=== PATIENT | male | born 1990 | race African-American/Black ===

== ENCOUNTER 2017-05-01 21:05 | Emergency (ER) | payer OTHER ==
[~2017-05-01] VITALS: Ht 180.3 cm; Wt 97.5 kg
[2017-05-01] MEDS ORDERED: NORCO 5-325 TA1 EACH PO (21:26)
[2017-05-01] MEDS ORDERED: AMOXICILLIN 50500 MG PO (21:26)
[2017-05-01] MEDS ORDERED: IBUPROFEN 800800 MG PO (21:27)
[2017-05-01 22:06] VITALS: BP 119/70
== END 2017-05-01 22:07 | disposition home or self-care (01) ==
LOC: M.ERS 21:05
DX: K08.89 Other specified disorders of teeth and supporting structures (principal)

== ENCOUNTER 2019-11-11 20:34 | Emergency (ER) | payer OTHER ==
[~2019-11-11] VITALS: Ht 180.3 cm; Wt 93.0 kg
[~2019-11-11 20:34] MED LIST: AMOXICILLIN 50500 MG PO; IBUPROFEN 800800 MG PO; NORCO 5-325 TA1 EACH PO
[2019-11-11] MEDS ORDERED: FLONASE 0.05%50 MCG NARES (20:52)
[2019-11-11 22:42] VITALS: BP 138/88
== END 2019-11-11 22:44 | disposition home or self-care (01) ==
LOC: M.ERS 20:34
DX: U07.1 COVID-19 (principal)

== ENCOUNTER 2021-04-28 06:41 | Emergency (ER) | payer OTHER ==
[~2021-04-28] VITALS: Ht 177.8 cm; Wt 86.2 kg
[~2021-04-28 06:41] MED LIST changes: +FLONASE 0.05%50 MCG NARES
[2021-04-28 08:53] VITALS: BP 118/70
== END 2021-04-28 08:54 | disposition home or self-care (01) ==
LOC: M.ERS 06:41
DX: J06.9 Acute upper respiratory infection, unspecified (principal); Z20.822 Contact with and (suspected) exposure to COVID-19; Z79.2 Long term (current) use of antibiotics; Z79.899 Other long term (current) drug therapy